=== PATIENT | male | born 1950 | race African-American/Black ===

== ENCOUNTER → 2017-03-25 | Day surgery (SDC) | payer MEDICARE ==
[~2017-03-25] MED LIST: FLEXERIL PO; IBUPROFEN PO; NORCO 5/325 TAB1 TAB PO; NORVASC10 MG PO; PRINIVIL20 M1 PO
--- NOTE | ~2017-03-25 | OR ---
Unit #: [id number]: [id number] Patient: ONESIMO MICHAELS [id number] [address] [address] [id number] O MR#: [id number] NAME: ONESIMO MICHAELS ROOM: Date of Procedure: 03/25/2017 Admission Date: 03/25/2017 Surgeon: Guicho Olmos M.D. : 1950 Attending Physician: Guicho Olmos M.D. Referring Physician: Guicho Olmos M.D. OPERATIVE REPORT PROCEDURES PERFORMED 1. Colonoscopy with snare polypectomy. 2. Hemoclip application. 3. Submucosal injection for tattooing. INDICATIONS A 67-year-old gentleman with average risk for colorectal cancer. MEDICATIONS Monitored anesthesia. POSTOPERATIVE FINDINGS 1. A large 3 cm polyp ascending colon, snared piecemeal. Three hemoclips were placed. The area was tattooed for future reference. 2. 2 polyps in the cecum, snared and sent for histopathology. 3. descending colon, snared and sent for histopathology. 4. Prep was adequate. PLAN Given the size and number of polyps, I would recommend a repeat colonoscopy in 1 year, unless pathology indicates otherwise. DESCRIPTION OF PROCEDURE The patient was explained of the procedure, risks, and benefits along with risks and benefits of anesthesia and was brought to the endoscopy room. Propofol anesthesia was given. Rectal exam was done, which was normal. Colonoscope was lubricated, passed up the rectum, advanced under direct vision all the way to the cecum. the scope was gently pulled out. He tolerated it well. Dictated by... Surekha Houser/cassy TD: 03/25/2017 16:38 JOB #: [id number] Yamilex/invision Please Delete Unit #: [id number] #: [id number] Patient: ONESIMO MICHAELS OPERATIVE REPORT Page 1 of 1 X Guicho Olmos MD PROCEDURE OPERATIVE NOTE
== END | disposition home or self-care (01) ==
LOC: COPS 08:43
DX: Z12.11 Encounter for screening for malignant neoplasm of colon (principal); D12.0 Benign neoplasm of cecum; D12.2 Benign neoplasm of ascending colon; K63.5 Polyp of colon; I10 Essential (primary) hypertension; Z88.8 Allergy status to other drugs, medicaments and biological substances; Z79.899 Other long term (current) drug therapy; Z98.890 Other specified postprocedural states
CPT/HCPCS: 88305